=== PATIENT | female | born 1975 | race Hispanic/Latino ===

== ENCOUNTER 2017-05-12 11:29 | Inpatient (IN) | payer BC, MEDICAID, OTHER ==
[2017-05-12 11:29] VITALS: BMI 27.3
--- NOTE | 2017-05-12 11:58 | C.PDOC ---
History Of Present Illness 42 year old female with PMHx of breast cancer with metastasis to spine s/p chemo and radiation, prior PE, Depression, Nephrolithiasis, Cervical disc herniation, anxiety, HTN, asthma, GERD, hypothyroidism, alcohol abuse, presents to ED with complaints of depression, and suicidal ideation without a plan. Pt admits to using heroin, benzo, and alcohol, states last use was last night. Denies fever, chills, abdominal pain, n/v/d, chest pain, shortness of breath, headache, or dizziness. Time Seen by Provider: 05/12/17 11:49 Chief Complaint (Nursing): Psychiatric Evaluation History Per: Patient History/Exam Limitations: no limitations Onset/Duration Of Symptoms: Gradual Current Symptoms Are (Timing): Still Present Suicide/Self Injury Attempted (Context): None Modifying Factor(s): Alcohol Severity: None Pain Scale Rating Of: 0 Associated Symptoms: Depression, Suicidal Thoughts. denies: Suicidal Plan Involuntary Hold By: None Recent travel outside of the [place]: No Additional History Per: Patient Past Medical History Reviewed: Historical Data, Nursing Documentation, Vital Signs Vital Signs: Last Vital Signs Temp 98.4 F 05/12/17 11:35 Pulse 119 H 05/12/17 11:35 Resp 18 05/12/17 11:35 BP 127/73 05/12/17 11:35 Pulse Ox 98 05/12/17 14:28 - Medical History PMH: Anemia, Anxiety, Arthritis (knees and back), Asthma, Back Problems, Bronchitis, Depression, Fractures (left knee), Gastrointestinal Ulcer, Gall Bladder Disease, HTN, Hypercholesterolemia, Hypothyroidism, Kidney Stones ( treated with stents and lithotripsy), Peripheral Edema, Pneumonia, Pulmonary Embolism, Chronic Kidney Disease Denies: Diabetes, Hepatitis, HIV, Seizures, Sexually Transmitted Disease Surgical History: Appendectomy, Cholecystectomy, Hernia Repair Denies: Pacemaker - [facility] Procedures CYSTOSCOPY NEC (12/15/14) DPT ADMINISTRATION (01/11/15) GROUP PSYCHOTHERAPY (03/20/16) INDIVID PSYCHOTHERAP NEC (01/25/15) INDIVIDUAL PSYCHOTHERAPY, BEHAVIORAL (03/20/16) INFLUENZA VACCINATION (03/12/14) INJECT ANTICOAGULANT (10/17/13) INJECT/INFUSE ELECTROLYT (11/25/13) INJECT/INFUSE NEC (01/11/15) INTRODUCE LOCAL ANESTH IN PERIPH NRV, PLEXI, PERC (02/28/16) INTRODUCTION OF SERUM/TOX/VACCINE INTO MUSCLE, PERC APPROACH (03/07/17) MEDICATION MANAGEMENT (01/21/16) MRI OF OTHER AND UNSPECIFIED SITES (01/11/14) OTHER ENDOSCOPY OF SM INTEST (08/31/14) OTHER GROUP THERAPY (01/25/15) OTHER LOCAL DESTRUC SKIN (11/11/04) PSYCHIA INTERV/EVAL NEC (05/20/14) PSYCHIAT DRUG THERAP NEC (01/25/15) REMOV URETERAL DRAIN (12/30/14) REPAIR ABDOMINAL WALL, OPEN APPROACH (02/28/16) REPAIR MESENTERY, OPEN APPROACH (02/28/16) REPAIR SIGMOID COLON, OPEN APPROACH (02/04/15) RESECTION OF APPENDIX, OPEN APPROACH (02/04/15) SERUM TRANSFUSION NEC (08/31/14) TU REMOV URETER OBSTRUCT (12/30/14) URETERAL CATHETERIZATION (12/15/14) VACCINATION NEC (10/17/13) VENOUS PUNCTURE NEC (05/20/14) Family History: States: Unknown Family Hx - Social History Hx Tobacco Use: Yes Hx Alcohol Use: Yes Hx Substance Use: Yes (last use yesterday) - Immunization History Hx Tetanus Toxoid Vaccination: No Hx Influenza Vaccination: No Hx Pneumococcal Vaccination: No Review Of Systems Except As Marked, All Systems Reviewed And Found Negative. Constitutional: Negative for: Fever, Chills Cardiovascular: Negative for: Chest Pain, Palpitations Respiratory: Negative for: Cough, Shortness of Breath Gastrointestinal: Negative for: Nausea, Vomiting, Abdominal Pain, Diarrhea Genitourinary: Negative for: Dysuria, Frequency, Hematuria Neurological: Negative for: Headache, Dizziness Psych: Positive for: Depression, Suicidal ideation Physical Exam - Physical Exam Appears: Non-toxic, No Acute Distress Skin: Normal Color, Warm, Dry Head: Normacephalic Eye(s): bilateral: PERRL Oral Mucosa: Moist, No Drooling Neck: Supple Cardiovascular: Rhythm Regular, No Murmur Respiratory: No Accessory Muscle Use, No Rales, No Rhonchi, No Wheezing Extremity: Normal ROM, No Deformity Neurological/Psych: Oriented x3, Normal Speech ED Course And Treatment - Laboratory Results Result Diagrams: 05/12/17 12:35 05/12/17 12:35 O2 Sat by Pulse Oximetry: 98 (RA) Pulse Ox Interpretation: Normal - CT Scan/US US results Other Rad Studies (CT/US): Read By Radiologist CT/US Interpretation: echogenic enlarged liver, s/p cholecystectomy. no other acute findings. Progress Note: Blood work, urinalysis ordered and reviewed. Pending crisis evaluation. At 13:55, pt resting comfortably, not in any apparent distress. Blood work review, mild elevated LFT, hepatic US ordered and results review- no acute abnormalities. UA results review and c/w UTI. Macrobid given, UCx- pending. Pt is medically cleared for PES evaluation. Pt was evaluated by cafeteria worker and subsequently case discussed with [id number] and admission to detox arranged. Disposition - Disposition Disposition: HOSPITALIZED Disposition Time: 14:02 Condition: STABLE Forms: [facility] (Malay) - Clinical Impression Clinical Impression: UTI (lower urinary tract infection), Opioid abuse, Alcohol dependence - PA / ESTIMATOR PRINTING / Resident Statement MD/DO has reviewed & agrees with the documentation as recorded. - Scribe Statement The provider has reviewed the documentation as recorded by the Scribcyndi Benjamin All medical record entries made by the Wan were at my direction and personally dictated by me. I have reviewed the chart and agree that the record accurately reflects my personal performance of the history, physical exam, medical decision making, and the department course for this patient. I have also personally directed, reviewed, and agree with the discharge instructions and disposition.
[2017-05-12 12:38] LABS: BASO # 0.1 K/uL (0.0-0.2); BASO % 1.4 % (0.0-2.0); EOS # 0.2 K/uL (0.0-0.7); EOS % 3.4 % (0.0-4.0); HEMOGLOBIN 11.2 g/dL (11.0-16.0); LYMPH # 1.4 K/uL (1.0-4.3); LYMPH % 24.3 % (20.0-40.0); MEAN CORPUSCULAR HEMOGLOBIN 24.3 pg (27.0-31.0); MEAN CORPUSCULAR HGB CONC 33.7 g/dL (33.0-37.0); MEAN PLATELET VOLUME 7.8 fL (7.2-11.7); MONO # 0.5 K/uL (0.0-0.8); MONO % 8.6 % (0.0-10.0); NEUT # 3.5 K/uL (1.8-7.0); NEUT % 62.3 % (50.0-75.0); RBC 4.63 Mil/uL (3.80-5.20); RED CELL DISTRIBUTION WIDTH 20.7 % (11.5-14.5); WHITE BLOOD COUNT 5.6 K/uL (4.8-10.8)
[2017-05-12 12:42] LABS: MEAN CELL VOLUME 72.1 fL (81.0-99.0)
[2017-05-12 12:50] LABS: ALB/GLOB RATIO 1.2 (1.0-2.1); ALBUMIN 3.7 g/dL (3.5-5.0); ALT/SGPT 130 U/L (9-52); AST/SGOT 142 U/L (14-36); BLOOD UREA NITROGEN 5 mg/dL (7-17); CALCIUM 7.6 mg/dl (8.6-10.4); GFR AFRICAN-AMERICAN > 60; GFR NON-AFRICAN AMERICAN > 60
[2017-05-12 13:13] LABS: SQUAMOUS EPITHIAL 14 /hpf (0-5); URINE BACTERIA OCC (<OCC); URINE BILIRUBIN NEGATIVE (NEGATIVE); URINE BLOOD 1+ (NEGATIVE); URINE CALCIUM OXALATE CRYSTALS OCC /hpf (<OCC); URINE CLARITY Hazy (Clear); URINE COLOR Yellow (YELLOW); URINE GLUCOSE (UA) NORMAL (Normal); URINE HYALINE CAST 0-2 /lpf (0-2); URINE LEUKOCYTE ESTERASE 3+ Leu/uL (Negative); URINE NITRATE NEGATIVE (NEGATIVE); URINE PROTEIN NEGATIVE (NEGATIVE); URINE UROBILINOGEN NORMAL mg/dL (0.2-1.0)
[2017-05-12 13:24] LABS: BARBITURATES, UR POSITIVE (NEGATIVE); BENZODIAZEPINES, UR POSITIVE (NEGATIVE); OPIATES, UR POSITIVE (NEGATIVE); PHENCYCLIDINE, UR NEGATIVE (NEGATIVE)
--- NOTE | 2017-05-12 15:24 | US ---
HISTORY: pain, high LFT COMPARISON: Comparison is made with the previous CT dated 12/12/2014 TECHNIQUE: Sonographic evaluation of the right upper quadrant of the abdomen. FINDINGS: LIVER: Measures 18.7 cm in length. Gggy-[id number] increased echogenicity of the liver parenchyma. No mass. No intrahepatic bile duct dilatation. GALLBLADDER: Status post cholecystectomy COMMON BILE DUCT: Measures 8 mm. No stones. No dilatation. PANCREAS: The pancreas is obscured by overlying bowel gas. RIGHT KIDNEY: Measures 10.9 x 4.1 x 4.2 cm in length. Normal echogenicity. No calculus, mass, or hydronephrosis. AORTA: No aneurysmal dilatation. IVC: Unremarkable. OTHER FINDINGS: None . IMPRESSION: Echogenic liver suggestive of hepatic steatosis. Status post cholecystectomy. Prominent common bile duct likely due to prior cholecystectomy. The pancreas obscured by overlying bowel gas. No evidence of right hydronephrosis.
--- NOTE | 2017-05-12 17:00 | PCM.BM ---
<Audra Ojeda - Last Filed: 05/12/17 16:58> Treatment Plan Problems - Problems identified on initial assessmt potiential for autonomic instability related to alcohol abuse Date Initiated: 05/12/17 Time Initiated: 16:59 Assessment reference: NA Status: Active potiential for opiate withdrawal Date Initiated: 05/12/17 Time Initiated: 17:00 Assessment reference: NA Status: Active Treatment assets and liabiliti Patient Assests: adapts well, cooperative, educated, motivated, self-reliant, ADL independent, negotiates basic needs, cognitively intact <Samantha Burger - Last Filed: 05/15/17 12:35> Family Contact Family involvement: Family/SO is involved Family contact: Patient agrees to contact - Goals for Treatment Patient goals for treatment: Complete detox and apply for inpatient rehab. Discharge/Continuing Care - Education Needs Education Needs: Patient Medication, Patient Diagnosis/Disease Process, Patient Coping Skills, Patient Anger Management skills, Patient Placement options, Patient Community resources - Discharge Discharge Criteria: Ability to care for self, No longer exhibiting s/s of withdrawal, Reduction of target symptoms Discharge to:: Substance Abuse Rehab - Treatment Team Participation Patient/Family/SO Statement: 05/15/17 12:34 "I wanna try either [facility] or [facility]." Discussed with Family/SO: No Was Patient/Family/SO present at Treatment Team Meeting: Yes
--- NOTE | 2017-05-12 17:38 | RAD ---
HISTORY: pain COMPARISON: No prior. FINDINGS: BOWEL: No obstruction. No free air. Jhai-bu-dkkeryiw constipation. BONES: Normal. OTHER FINDINGS: Surgical clips suggestive of prior cholecystectomy. IMPRESSION: [id number]-rv-ztuvsdvs constipation.
[2017-05-13] MEDS: Multiple Vitamins Tab PO SCH (09:39)
--- NOTE | 2017-05-13 16:25 | PCM.PSYCH ---
Initial Psychiatric Evaluation - Initial Psychiatric Evaluation Type of Admission: Voluntary Legal Status: Capacity Chief Complaint (in patient's own words): "I have opioid withdrawal symptoms." History of Present Illness and Precipitating Events: This patient is a 42 year old female who was admitted for the treatment of opioid dependence. She had has psychiatric history of depression and multiple psych admissions in the past. The patients last use of Heroin, 05/11/17, 10 bags via intranasal, but patients general usage is 20 bags. CAGE stimulant was positive. Patient reported heroin withdrawal symptoms. The patients last use of ETOH is 05/12/17, 1 beer, but patient states general use if 5-6 beers and 1 bottle of Vodka daily. Recent reported alcohol withdrawal symptoms. She denied seizures or DTs can due to alcohol. The patient recently completed detox at [facility] and was discharged on 05/04/17. The patient reports relapsing in a couple of days after being discharged. The patient was to be referred to [facility], but due to miscommunication and loss of paperwork, the bed was no longer available. Patient also reported that she isn't taking Dilaudid 8 mg 4 times a day 30 mg oxycodone 3 times a day. Patient also stated that she is taking Xanax 2 mg 3 times a day since 2006. All medications are prescribed by the physician. Patient reported she is depressed on and off currently taking Cymbalta 90 mg oral daily Wellbutrin 150 mg 2 tablets a day for the depression. Patient denied suicidal or homicidal ideation intent or plan. It was informed to the patient that after confirmation of her medication, this M.D. and will start her on medications. PPHx: The patient was hospitalized psychiatrically at [facility] in March, for depression and anxiety and also at [facility] in 2014. The patient was given a prescription for Xanax 2mg, after being discharged from [facility] which the patient reports being complaint with taking. PMHx: The patient was diagnosed with Breast Cancer in May 2015 and had a dual lumpectomy and 3 lymph nodes were removed. The patient completed chemotherapy and radiation Current Medications: Active Medications Generic Name Dose Route Start Last Admin Trade Name Freq PRN Reason Stop Dose Admin Clonidine HCl 0.1 mg 05/12/17 17:59 Catapres PO Q8 PRN COWS Score More or Equal to 5 Folic Acid 1 mg 05/13/17 10:00 05/13/17 09:39 Folic Acid PO 1 mg DAILY JOSH Administration Gabapentin 100 mg 05/13/17 10:00 05/13/17 14:19 Neurontin PO 100 mg TID JOSH Administration Hydroxyzine HCl 25 mg 05/12/17 18:51 05/13/17 11:04 Atarax PO 25 mg TID PRN Administration Anxiety Ibuprofen 600 mg 05/12/17 18:00 Motrin Tab PO Q6H PRN Pain, moderate (4-7) Loperamide HCl 2 mg 05/12/17 17:59 Imodium PO Q8 PRN Diarrhea Lorazepam 2 mg 05/12/17 19:00 05/13/17 16:07 Ativan PO 05/17/17 18:59 2 mg Q4 JOSH Administration Taper Multivitamins 1 tab 05/13/17 10:00 05/13/17 09:39 Hexavitamin PO 1 tab DAILY JOSH Administration Ondansetron HCl 4 mg 05/12/17 17:59 Zofran Tab PO Q8 PRN Nausea/Vomiting Thiamine HCl 100 mg 05/13/17 10:00 05/13/17 09:39 Vitamin B1 Tab PO 100 mg DAILY JOSH Administration Trazodone HCl 50 mg 05/12/17 18:01 05/13/17 01:19 Desyrel PO 50 mg HS PRN Administration Insomnia Past Psychiatric History - Past Psychiatric History Previous Treatment History: Inpatient Prior Psychiatric Treatment: multiple admissions At what hospital: . [facility], [facility] History of Abuse: denied History of ETOH/Drug Use: please see HPI History of Family Illness: denied Pertinent Medical Hx (Current Medical&Sleep Prob, Allergies): Allergies Allergy/AdvReac Type Severity Reaction Status Date / Time ciprofloxacin [From Cipro] Allergy Severe VOMITING Verified 04/07/17 11:00 ciprofloxacin HCl Allergy Severe VOMITING Verified 04/07/17 11:00 [From Cipro] clarithromycin [From Biaxin] Allergy Severe ANAPHYLAXIS Verified 04/07/17 11:00 Penicillins Allergy Severe RASH Verified 04/07/17 11:00 Pantoprazole [Protonix EC Tab] 40 mg PO DAILY #30 ect 06/02/16 DULoxetine [Cymbalta] 90 mg PO DAILY #45 ecc 03/13/17 Tamoxifen [Nolvadex] 20 mg PO DAILY tab 03/13/17 Zolpidem [Ambien] 10 mg PO HS PRN #14 tab 03/13/17 Nicotine [Nicotine Patch] 14 each TD DAILY #14 patch.dysq 03/20/17 Folic Acid 1 mg PO DAILY #30 tab 04/08/17 LORazepam [Ativan] 1 mg PO Q6 #12 tab 04/08/17 Multivitamin [Daily Value] 1 each PO DAILY #30 tablet 04/08/17 Ondansetron [Zofran] 4 mg PO Q8H PRN #6 tab 04/08/17 Thiamine [Vitamin B-1] 100 mg PO DAILY #30 tab 04/08/17 Review of Systems - Review of Systems All systems: reviewed and no additional remarkable complaints except (see HPI) Mental Status Examination - Personal Presentation Personal Presentation: Looks stated age, Dressed appropriate to season - Affect Affect: Constricted - Motor Activity Motor Activity: Calm - Reliability in Providing Information Reliability in Providing Information: Fair - Speech Speech: Organized - Mood Mood: Anxious - Formal Thought Process Formal Thought Process: No Impairment - Hallucinations/Delusions Hallucinations: Other (denied) - Obsessions/Compulsions Obsessions: None Compulsions: None - Cognitive Functions Orientation: Person, Place, Situation, Time Sensorium: Alert Abstract Thinking: [place] Estimate of Intelligence: Average Judgement: Intact, as evidence by: Good judgement, Intact, as evidence by: Insight regarding need for hospitalization Memory: Recent intact, as evidence by: Ability to recall events of the day, Recent intact, as evidence by: 3/3 object recall - Risk Risk: Withdrawal - Strength & Assets Inventory Strength & Assets Inventory: Skills, Cooperative - Limitations Limitations: Other (chronic use of drugs) DSM 5 DX - DSM 5 DSM 5 Diagnosis: opioid dependence, severe Opioid withdrawal symptoms Alcohol use disorder, severe, dependence sedated, hypnotic/anxiolytic use disorder unspecified depressive disorder - Recommended/Plan of Treatment Treatment Recommendations and Plan of Treatment: Ativan detox/ Librium detox Gabapentin for augmentation As needed meds and vitamins Attend groups and activities [place] for abstinence and CBT for relapse prevention Support and psychoeducation Consider and encourage MAT Refer to after care 33 min Projected ELOS: 5-6 days Prognosis: good Discharge Plan and Discharge Criteria: as per after care plan - Smoking Cessation Smoking Cessation Initiated: Yes
[2017-05-14] MEDS: Multiple Vitamins Tab PO SCH (09:05)
--- NOTE | 2017-05-14 11:03 | PCM.PYCHPN ---
Psychiatric Progress Note - Psychiatric Progress Note Patient seen today, length of contact: 15 min Patient Chief Complaint: I am withdrawing.' Problems Identified/Issues Discussed: Patient seen and evaluated, chart reviewed and discussed with the nurse. Patient still reports withdrawal symptoms including nausea, headaches, cramps and sweating. She reports irritable mood but denies any feelings of hopelessness and helplessness. She denies any SI/HI/AVH. Patient remained isolated, confined and withdrawn. She is taking medication and denies any side effects. She needs more time for stabilization. Supportive therapy and psychoeducation were given. Medication Change: Yes (ativan and methadone taper) Medical Record Reviewed: Yes Mental Status Examination - Cognitive Function Orientation: Person, Place, Situation, Time Memory: Intact Attention: WNL Concentration: Poor Association: WNL Fund of Knowledge: Poor - Mood Mood: Anxious - Affect Affect: Constricted - Speech Speech: Soft - Formal Thought Process Formal Thought Process: No Impairment - Suicidal Ideation Suicidal Ideation: No - Homicidal Ideation Homicidal Ideation: No Goal/Treatment Plan - Goal/Treatment Plan Need for Continued Stay: Severe depression anxiety, Severe functional impairment Progress Toward Problem(s) and Goals/Treatment Plan: Opioid dependence, severe Opioid withdrawal symptoms Alcohol use disorder, severe, dependence sedated, hypnotic/anxiolytic use disorder unspecified depressive disorder Ativan detox Methadone taper Gabapentin for augmentation As needed meds and vitamins Attend groups and activities [place] for abstinence and CBT for relapse prevention Support and psychoeducation Consider and encourage MAT Refer to after care - Smoking Cessation Smoking Cessation Initiated: No
[2017-05-14] MEDS: buPROPion SR 150 MG TABLET PO SCH (12:50)
[2017-05-15] MEDS: Multiple Vitamins Tab PO SCH (09:12)
[2017-05-15] MEDS: buPROPion SR 150 MG TABLET PO SCH (09:13)
--- NOTE | 2017-05-15 14:50 | PCM.PYCHPN ---
Psychiatric Progress Note - Psychiatric Progress Note Patient seen today, length of contact: 16 mins Patient Chief Complaint: I am still feeling withdrawal symptoms Problems Identified/Issues Discussed: The pt is seen, chart reviewed, case discussed with staff. She states she is currently uncomfortable and experiencing withdrawal symptoms. She states she was sweating, anxious, having diffuse muscle cramping, yawning, chills, and sweating. She also states she could not sleep well because she has been feeling very anxious. Denies diarrhea, hallucinations, paranoia. The pt is compliant with medications and reports no side-effects. Symptoms are improving but needs more time to stabilize. After care discussed, support and psychoeducation given. Medication Change: Yes (detox changes daily) Medical Record Reviewed: Yes Mental Status Examination - Cognitive Function Orientation: Person, Place, Situation, Time Memory: Intact Attention: WNL Concentration: WNL Association: WNL Fund of Knowledge: WNL - Mood Mood: Anxious - Affect Affect: Constricted - Speech Speech: Appropriate - Formal Thought Process Formal Thought Process: No Impairment - Suicidal Ideation Suicidal Ideation: No - Homicidal Ideation Homicidal Ideation: No Goal/Treatment Plan - Goal/Treatment Plan Need for Continued Stay: Discharge may exacerbated symptoms, Severe functional impairment Progress Toward Problem(s) and Goals/Treatment Plan: Bupropion 150mg daily, Duloxetine stopped and lexapro started bc of liver risk Methadone detox As needed medications Gabapentin for augmentation Attend groups and activities Supportive therapy and psychoeducation [place] for abstinence CBT for relapse prevention Encourage MAT Refer to rehab or IOP Attend self-help groups as well
[2017-05-16] MEDS: buPROPion 150 mg/24 Hours XL Tab PO SCH (09:20)
[2017-05-16] MEDS: Multiple Vitamins Tab PO SCH (09:20)
--- NOTE | 2017-05-16 12:59 | PCM.PYCHPN ---
Psychiatric Progress Note - Psychiatric Progress Note Patient seen today, length of contact: 16 mins Patient Chief Complaint: I am still feeling withdrawal symptoms Problems Identified/Issues Discussed: The pt is seen, chart reviewed, case discussed with staff. Patient stated she is still feeling anxious and was sweating through the night. She states she woke up frequently through the night The pt is compliant with medications and reports no side-effects. Symptoms are improving but needs more time to stabilize. After care discussed, support and psychoeducation given. Medication Change: Yes (detox changes daily) Medical Record Reviewed: Yes Mental Status Examination - Cognitive Function Orientation: Person, Place, Situation, Time Memory: Intact Attention: WNL Concentration: WNL Association: WNL Fund of Knowledge: WNL - Mood Mood: Anxious - Affect Affect: Constricted - Speech Speech: Appropriate - Formal Thought Process Formal Thought Process: No Impairment - Suicidal Ideation Suicidal Ideation: No - Homicidal Ideation Homicidal Ideation: No Goal/Treatment Plan - Goal/Treatment Plan Need for Continued Stay: Discharge may exacerbated symptoms, Severe functional impairment Progress Toward Problem(s) and Goals/Treatment Plan: Bupropion 150mg daily, Duloxetine stopped and lexapro started bc of liver risk Methadone detox Tamoxifen 20mg QD started As needed medications Gabapentin for augmentation Attend groups and activities Supportive therapy and psychoeducation [place] for abstinence CBT for relapse prevention Encourage MAT Refer to rehab or IOP Attend self-help groups as well
[2017-05-17] MEDS: buPROPion 150 mg/24 Hours XL Tab PO SCH (09:39)
[2017-05-17] MEDS: Multiple Vitamins Tab PO SCH (09:39)
--- NOTE | 2017-05-17 14:08 | PCM.PYCHPN ---
Psychiatric Progress Note - Psychiatric Progress Note Patient seen today, length of contact: 16 mins Patient Chief Complaint: "I am feeling better than before " Problems Identified/Issues Discussed: The pt is seen, chart reviewed, case discussed with staff. Patient still states she is anxious and having "bad sweats." She will be discharged tomorrow(05/18) morning at 6am. She states she has an appointment at 7am at [facility]. The pt is compliant with medications and reports no side-effects. Symptoms are improving but needs more time to stabilize. After care discussed, support and psychoeducation given. Medication Change: Yes (detox changes daily) Medical Record Reviewed: Yes Mental Status Examination - Cognitive Function Orientation: Person, Place, Situation, Time Memory: Intact Attention: WNL Concentration: WNL Association: WNL Fund of Knowledge: WNL - Mood Mood: Anxious - Affect Affect: Constricted - Speech Speech: Appropriate - Formal Thought Process Formal Thought Process: No Impairment - Suicidal Ideation Suicidal Ideation: No - Homicidal Ideation Homicidal Ideation: No Goal/Treatment Plan - Goal/Treatment Plan Need for Continued Stay: Discharge may exacerbated symptoms, Severe functional impairment Progress Toward Problem(s) and Goals/Treatment Plan: Bupropion 150mg daily, Duloxetine stopped and lexapro started bc of liver risk Methadone detox Tamoxifen 20mg QD As needed medications Gabapentin for augmentation Attend groups and activities Supportive therapy and psychoeducation [place] for abstinence CBT for relapse prevention Encourage MAT Refer to rehab or IOP Attend self-help groups as well
[2017-05-17 17:45] VITALS: RESP 18
[2017-05-17 19:14] VITALS: O2SAT 99
[2017-05-18 05:34] VITALS: BP 110/80; PULSE 100; TEMP 98
--- NOTE | 2017-05-18 08:46 | PCM.PYCHDC ---
Mental Status Examination - Mental Status Examination Orientation: Person, Place, Situation, Time Memory: Intact Mood: Anxious Affect: Broad Speech: Appropriate Attention: WNL Concentration: WNL Association: WNL Fund of Knowledge: WNL Formal Thought Process: No Impairment Suicidal Ideation: No Current Homicidal Ideation?: No Discharge Summary - Discharge Note Reason for Hospitalization: Detox from heroin Consultations:: List each consultation separately and include: 1. Reason for request. 2. Findings. 3. Follow-up Summary of Hospital Course include:: 1. Description of specific treatment plan utilized for patients during their course of treatmen. 2. Summarize the time- course for resolution of acute symptoms and/or regressed behaviors. 3. Describe issues identified and worked on during hospitalization. 4. Describe medication utilized. 5. Describe medical problems identified and treated. 6. Reassessment of suicide risk Summary of Hospital Course: The pt was admitted and started on treatment with psychotherapy, support, psychoeducation and medications. NE and CBT used. The pt attended groups and activities, as well as milieu therapy. All the risks and benefits of medications are discussed and the patient understood and agreed. The pt improved with the treatments provided. After care discussed with the patient. Patient had an appointment at [facility] at 7am today. - Final Diagnosis (DSM 5) Condition upon Discharge: STABLE DSM 5: opioid dependence, severe Opioid withdrawal symptoms Alcohol use disorder, severe, dependence sedated, hypnotic/anxiolytic use disorder unspecified depressive disorder Disposition: HOME/ ROUTINE Follow-up Treatment Plan: Continue below medications after discharge. Follow after care plan as discussed. Use relapse prevention skills Return to ER or call 911 if suicidal, homicidal or symptoms relapse. Stay away from stress, alcohol and drugs. See primary doctor regularly and get labs. Prescriptions/Medication Reconciliation: buPROPion XL [Wellbutrin XL] 150 mg PO DAILY #30 t24 Escitalopram [Lexapro] 10 mg PO DAILY #30 tab Gabapentin [Neurontin] 100 mg PO TID #90 cap traZODone [Desyrel] 50 mg PO HS PRN #30 tab PRN Reason: Insomnia - Antipsychotic Medications Pt discharged on 2 or more routine antipsychotic medications: No
== END 2017-05-18 06:29 | disposition home or self-care (01) | DRG 744 ==
LOC: C.ER 11:29 → C.9E 16:16 → C.7D 16:49
PROVIDERS: ADMIT Psychiatry & Neurology Psychiatry; ATTEND Psychiatry & Neurology Psychiatry
PROC: HZ2ZZZZ Detoxification Services for Substance Abuse Treatment (ICD-10-PCS; principal; 2017-05-12)
PROC: HZ52ZZZ Individual Psychotherapy for Substance Abuse Treatment, Cognitive-Behavioral (ICD-10-PCS; 2017-05-12)
PROC: HZ42ZZZ Group Counseling for Substance Abuse Treatment, Cognitive-Behavioral (ICD-10-PCS; 2017-05-12)
PROC: HZ59ZZZ Individual Psychotherapy for Substance Abuse Treatment, Supportive (ICD-10-PCS; 2017-05-12)
PROC: HZ56ZZZ Individual Psychotherapy for Substance Abuse Treatment, Psychoeducation (ICD-10-PCS; 2017-05-12)
PROC: HZ46ZZZ Group Counseling for Substance Abuse Treatment, Psychoeducation (ICD-10-PCS; 2017-05-12)
DX: F11.23 Opioid dependence with withdrawal (principal); N39.0 Urinary tract infection, site not specified; R45.851 Suicidal ideations; M50.20 Other cervical disc displacement, unspecified cervical region; F13.19 Sedative, hypnotic or anxiolytic abuse with unspecified sedative, hypnotic or anxiolytic-induced disorder; F10.239 Alcohol dependence with withdrawal, unspecified; F32.9 Major depressive disorder, single episode, unspecified; Z85.3 Personal history of malignant neoplasm of breast; I10 Essential (primary) hypertension; J45.909 Unspecified asthma, uncomplicated; K21.9 Gastro-esophageal reflux disease without esophagitis; E03.9 Hypothyroidism, unspecified; F41.9 Anxiety disorder, unspecified; E78.00 Pure hypercholesterolemia, unspecified; Z86.711 Personal history of pulmonary embolism; F17.210 Nicotine dependence, cigarettes, uncomplicated